=== PATIENT | female | born 1985 | race Caucasian/White ===

== ENCOUNTER 2023-12-24 17:57 | Emergency (ER) | payer OTHER, SELFPAY ==
[2023-12-24 18:00] VITALS: BP 106/70
--- NOTE | 2023-12-24 18:50 | ED.GENMED ---
History of Present Illness
General
Chief Complaint: Eye Problems
Source: patient
Exam Limitations: none
Time Seen by Provider: 12/24/23 18:01
Nursing documentation reviewed up to this point in time: agreed with
Travel History
Have you had any contact with someone who has COVID-19?: No
Do you have any symptoms of coronavirus? Fever > 100 degrees, chills, cough, shortness of breath, sore throat, loss of taste or smell, muscle aches, or headache?: No
History of Present Illness
History of Present Illness:
Patient to ED with complaint of left upper eyelid swelling. Symptoms started last PM. No history of trauma. Reports erythema and tenderness, pruritic at times. Brought self to ED for eval.
Past History
Past History
ED Past Medical History: None and Other (ITP)
Social History
Tobacco: Non-smoker
Alcohol: Occasional
Personal:
Living: with family
Review of Systems
Review of Systems
Allergies reviewed?: Yes
All Other Systems: ROS reviewed and negative except as documented in HPI and ROS
Constitutional: Reports no symptoms
EENT: Reports other (Left upper eyelid swelling and erythema)
Musculoskeletal: Reports no symptoms
Skin: Reports other (tenderness, swelling, erythema to left upper lid)
Neurological: Reports no symptoms
Psychiatric: Reports no symptoms
Phy Exam
General Physical Exam
General Presentation: well appearing and no apparent distress
General age: appears stated age
General Skin: warm and dry
General Habitus: normal
General Mental: alert
Eye Exam
Eye Exam: PERRL, EOMI, conjunctiva normal, globe normal and other (Upper lid everted, examined under slit lamp, swept with qtip. No foreign body)
Eyelid Exam: red and inflamed: Left (Left upper lateral eyelid), edematous: Left and painful to palpate: Left
Type of Exam: slit lamp and simple
Skin Exam
Skin Exam: other (Erythema swelling tenderness left upper lid)
Psychiatric Exam
Psychiatric Exam: normal mood/affect
Course
Vital Signs
Initial and Last Documented VS:
Initial Vital Signs
Temp Pulse Resp Pulse Ox
98.1 F 78 18 96
12/24/23 17:58 12/24/23 17:58 12/24/23 17:58 12/24/23 17:58
Last Documented Vital Signs
Temp Pulse Resp BP Pulse Ox
98.1 F 78 18 106/70 96
12/24/23 17:58 12/24/23 17:58 12/24/23 17:58 12/24/23 18:00 12/24/23 17:58
*Critical Care Note
Total Time (30-74mins, 75-104mins- exclusive of procedures): Not Applicable
Update Note
Update Note:
Blepharitis vs early hordeolum. Warm compresses frequently. May apply antibiotic ointment bid. Follow up with her ophthalmologis, Dr. Alexander, on Tuesday.
ED Attending Note
-
Portions of this chart may have been created with voice recognition software.� Occasional wrong word or��sound alike� substitutions may have occurred due to the inherent limitations of voice recognition software.
Discharge Plan
Departure
Patient Disposition: Home (Routine Discharge)
Date of Disposition: 12/24/23
Time of Disposition: 18:15
Patient with high blood pressure during this ER visit?: No
Condition: Good
Covid-19: Not Applicable
Discharge Problem:
Blepharitis
Instructions: Blepharitis
Prescriptions:
New
tobramycin 0.3 % ointment
1 applic ophthalmic (eye) BID Qty: 3.5 0RF
No Action
Loratadine [Claritin] 10 MG Tablet
1 tab PO DAILY
acetaminophen 325 mg Tablet
650 mg PO Q4HPRN PRN (Reason: mild pain) Qty: 0 0RF
ibuprofen 600 mg Tablet
600 mg PO Q6HPRN PRN (Reason: cramps) Qty: 0 0RF
Referrals:
Valentín Alexander MD [Active] - Follow up in 2-3 days
Interventions
Interventions:
*Risk Screen - Suicide Last Done: 12/24/23 18:09
*General Assessment Last Done: 12/24/23 18:09
*Neglect/Abuse Screening Last Done: 12/24/23 18:09
ED- Fall Risk Assessment Last Done: 12/24/23 18:09
*ED COVID-19 Vaccine History Last Done: 12/24/23 18:09
*Nursing Disposition Last Done: 12/24/23 18:24
Discharge Date and Time
Discharge Date/Time: 12/24/23 18:27
== END 2023-12-24 18:27 | disposition home or self-care (01) ==
LOC: EMR 17:57
PROVIDERS: EMERGENCY PHYSICIAN Emergency Medicine; FAMILY PHYSICIAN Internal Medicine
DX: H01.004 Unspecified blepharitis left upper eyelid (principal); D69.3 Immune thrombocytopenic purpura
CPT/HCPCS: 99282

== ENCOUNTER 2024-03-15 14:04 | Outpatient (RCR) | payer OTHER, SELFPAY | END 2024-03-15 23:59 | disposition home or self-care (01) | LOC: RPT 14:04 | PROVIDERS: ATTENDING PHYSICIAN Obstetrics & Gynecology; FAMILY PHYSICIAN Nurse Practitioner Adult Health | DX: M62.00 Separation of muscle (nontraumatic), unspecified site (principal); R29.3 Abnormal posture; Z73.6 Limitation of activities due to disability | CPT/HCPCS: 97112; 97163; 97530 ==

== ENCOUNTER 2024-04-16 15:07 | Outpatient (RCR) | payer OTHER, SELFPAY | END 2024-04-16 23:59 | disposition home or self-care (01) | LOC: RPT 15:07 | PROVIDERS: ATTENDING PHYSICIAN Obstetrics & Gynecology; FAMILY PHYSICIAN Nurse Practitioner Adult Health | DX: M62.00 Separation of muscle (nontraumatic), unspecified site (principal); Z73.6 Limitation of activities due to disability; R29.3 Abnormal posture | CPT/HCPCS: 97110; 97112; 97530 ==

== ENCOUNTER 2024-05-21 13:06 | Outpatient (RCR) | payer OTHER, SELFPAY | END 2024-05-21 23:59 | disposition home or self-care (01) | LOC: RPT 13:06 | PROVIDERS: ATTENDING PHYSICIAN Obstetrics & Gynecology; FAMILY PHYSICIAN Nurse Practitioner Adult Health | DX: M62.08 Separation of muscle (nontraumatic), other site (principal); R29.3 Abnormal posture | CPT/HCPCS: 97110; 97112; 97530 ==

== ENCOUNTER 2024-06-18 13:08 | Outpatient (RCR) | payer OTHER, SELFPAY | END 2024-06-18 23:59 | disposition home or self-care (01) | LOC: RPT 13:08 | PROVIDERS: ATTENDING PHYSICIAN Obstetrics & Gynecology; FAMILY PHYSICIAN Nurse Practitioner Adult Health | DX: M62.00 Separation of muscle (nontraumatic), unspecified site (principal); Z73.6 Limitation of activities due to disability; R29.3 Abnormal posture | CPT/HCPCS: 97110; 97140; 97530 ==

== ENCOUNTER 2024-07-02 12:04 | Outpatient (RCR) | payer OTHER, SELFPAY | END 2024-07-02 23:59 | disposition home or self-care (01) | LOC: RPT 12:04 | PROVIDERS: ATTENDING PHYSICIAN Obstetrics & Gynecology; FAMILY PHYSICIAN Nurse Practitioner Adult Health | DX: M62.08 Separation of muscle (nontraumatic), other site (principal); R29.3 Abnormal posture | CPT/HCPCS: 97014; 97140; 97530 ==

== ENCOUNTER 2024-08-20 13:25 | Outpatient (RCR) | payer OTHER, SELFPAY | END 2024-08-20 23:59 | disposition home or self-care (01) | LOC: RPT 13:25 | PROVIDERS: ATTENDING PHYSICIAN Obstetrics & Gynecology; FAMILY PHYSICIAN Nurse Practitioner Adult Health | DX: M62.00 Separation of muscle (nontraumatic), unspecified site (principal); Z73.6 Limitation of activities due to disability; R29.3 Abnormal posture | CPT/HCPCS: 97110; 97530 ==

== ENCOUNTER 2024-09-03 13:15 | Outpatient (RCR) | payer OTHER, SELFPAY | END 2024-09-03 23:59 | disposition home or self-care (01) | LOC: RPT 13:15 | PROVIDERS: ATTENDING PHYSICIAN Obstetrics & Gynecology; FAMILY PHYSICIAN Nurse Practitioner Adult Health | DX: M62.00 Separation of muscle (nontraumatic), unspecified site (principal); Z73.6 Limitation of activities due to disability; R29.3 Abnormal posture | CPT/HCPCS: 97112; 97530 ==

== ENCOUNTER 2024-10-08 13:07 | Outpatient (RCR) | payer OTHER, SELFPAY | END 2024-10-08 23:59 | disposition home or self-care (01) | LOC: RPT 13:07 | PROVIDERS: ATTENDING PHYSICIAN Obstetrics & Gynecology; FAMILY PHYSICIAN Nurse Practitioner Adult Health | DX: M62.00 Separation of muscle (nontraumatic), unspecified site (principal); Z73.6 Limitation of activities due to disability; R29.3 Abnormal posture | CPT/HCPCS: 97110; 97530 ==

== ENCOUNTER 2024-11-08 13:06 | Outpatient (RCR) | payer OTHER, SELFPAY | END 2024-11-09 07:29 | disposition home or self-care (01) | LOC: RPT 13:06 | PROVIDERS: ATTENDING PHYSICIAN Obstetrics & Gynecology; FAMILY PHYSICIAN Nurse Practitioner Adult Health | DX: M62.00 Separation of muscle (nontraumatic), unspecified site (principal); M62.08 Separation of muscle (nontraumatic), other site (principal); Z73.6 Limitation of activities due to disability; R29.3 Abnormal posture; M62.81 Muscle weakness (generalized) | CPT/HCPCS: 97110; 97140; 97530 ==

== ENCOUNTER → 2025-02-04 16:15 | Outpatient (REF) | payer OTHER, SELFPAY | LOC: RAD 16:15 | PROVIDERS: ATTENDING PHYSICIAN Nurse Practitioner Family | DX: J06.9 Acute upper respiratory infection, unspecified (principal) | CPT/HCPCS: 71046 ==

== ENCOUNTER → 2025-08-12 14:34 | Outpatient (REF) | payer OTHER, SELFPAY | LOC: PNTC 14:34 | PROVIDERS: ATTENDING PHYSICIAN Obstetrics & Gynecology | DX: Z36.0 Encounter for antenatal screening for chromosomal anomalies (principal); Z36.82 Encounter for antenatal screening for nuchal translucency; O09.521 Supervision of elderly multigravida, first trimester; O99.211 Obesity complicating pregnancy, first trimester; E66.9 Obesity, unspecified | CPT/HCPCS: 76801; 76813 ==

== ENCOUNTER → 2025-09-11 10:08 | Outpatient (REF) | payer OTHER, SELFPAY | LOC: PNTC 10:08 | PROVIDERS: ATTENDING PHYSICIAN Obstetrics & Gynecology | DX: O34.219 Maternal care for unspecified type scar from previous cesarean delivery (principal); O09.522 Supervision of elderly multigravida, second trimester; O99.212 Obesity complicating pregnancy, second trimester | CPT/HCPCS: 76805 ==

== ENCOUNTER → 2025-10-07 10:00 | Outpatient (REF) | payer OTHER, SELFPAY | LOC: PNTC 10:00 | PROVIDERS: ATTENDING PHYSICIAN Obstetrics & Gynecology | DX: O34.219 Maternal care for unspecified type scar from previous cesarean delivery (principal); O09.522 Supervision of elderly multigravida, second trimester; O99.212 Obesity complicating pregnancy, second trimester; Z36.3 Encounter for antenatal screening for malformations; Z36.86 Encounter for antenatal screening for cervical length | CPT/HCPCS: 76811; 76817 ==